=== PATIENT | female | born 1950 | race Caucasian/White ===

== ENCOUNTER → 2022-12-21 18:44 | Outpatient (BNVA) | payer OTHER, SELFPAY | PROVIDERS: Visit Provider Emergency Medicine | DX: R39.9 Unspecified symptoms and signs involving the genitourinary system (principal); N39.0 Urinary tract infection, site not specified | CPT/HCPCS: 81000 ==

== ENCOUNTER → 2023-11-07 09:01 | Outpatient (BNVA) | payer OTHER, SELFPAY | PROVIDERS: Visit Provider Student in an Organized Health Care Education/Training Program | DX: M67.442 Ganglion, left hand | CPT/HCPCS: 73130 ==

== ENCOUNTER 2023-12-20 13:10 | Day surgery (SDC) | payer OTHER, SELFPAY ==
[2023-12-20] VITALS (9 sets, daily range): BP systolic 161–185; BP diastolic 66–81; PULSE 54–65; RESP 14–17; TEMP 36.5; O2SAT 96–100; BMI 31.6
[2023-12-20] MEDS: sodium chloride 0.9% 1,000 ML 30 ML IV (13:57)
--- NOTE | 2023-12-20 13:57 | P.HP_ITS ---
Same Day Surgery H&P Indication for Procedure/HPI DATE OF PROCEDURE: December 20, 2023 CHIEF COMPLAINT/INDICATIONFOR SURGICAL PROCEDURE: Left middle finger mucous cyst PREOP DIAGNOSIS: Left middle finger mucous cyst PLANNED PROCEDURE: Operation Date: 12/20/23 14:50 Proposed Procedures p left middle finger mucous cyst excision(Left) - Bola Suh DO Medications/Allergies* Home Medications Medication Instructions Recorded Confirmed Type atorvastatin 40 mg tablet 40 mg PO DAILY 06/15/20 12/19/23 History metoprolol succinate 50 mg 50 mg PO DAILY 06/15/20 12/19/23 History tablet,extended release 24 hr omeprazole 40 mg capsule,delayed 40 mg PO DAILY 06/15/20 12/19/23 History release loratadine 10 mg tablet (Claritin) 10 mg PO DAILY 11/07/23 12/19/23 History lisinopril 20 1 tab PO DAILY 12/19/23 12/19/23 History mg-hydrochlorothiazide 12.5 mg tablet multivitamin 1 tab PO DAILY 12/19/23 12/19/23 History omega-3 fatty acids 1 cap PO DAILY 12/19/23 12/19/23 History zinc 50 mg tablet 50 mg PO DAILY 12/19/23 12/19/23 History Allergies/Adverse Reactions Allergy/AdvReac Type Severity Reaction Status Date / Time carbamazepine [From Tegretol] Allergy Severe fever Verified 12/19/23 17:02 Pertinent History/Comorbid Conditions* Social History Smoking and tobacco/nicotine status: never used tobacco/nicotine Marital status: Pertinent Exam Findings alert, oriented x 3, operative site marked and procedure specific exam findings Please refer to detailed orthopedic examination on 11/07/2023 detailed below: Examination left hand: Examination left hand demonstrates patient has a soft mobile mucous cyst over the left middle finger DIP joint dorsally. This is tender to palpation was positive Tinel's over the cyst and DIP joint., Fingertip is warm well-perfused brisk cap refill less than 2 seconds she is able to make a full fist and normal- appearing function of the digit with no deformities appreciated. Sensation intact light touch distally. Recommendations Surgery/Procedure today Other Plans: Plan to proceed to the OR today for left middle finger mucous cyst excision. Patient understands in's and outs procedure risk benefits complication alternatives to surgery and through shared decision make elected proceed with surgical invention all questions answered at this time. Patient wished to proceed with local anesthetic. All questions answered. Coding Level of Care Code Acute Code for Chg Fwd
[2023-12-20] MEDS: ketorolac 30 mg/mL INJ IVP (14:04)
[2023-12-20] MEDS: acetaminophen 1,000 MG/100 ML PIGGYBACK 400 MG IV (14:04)
[2023-12-20] MEDS: ceFAZolin 2,000 MG in sodium chloride 0.9% (plus) 50 ML 100 MG IV (14:38)
[2023-12-20] MEDS: ROPivacaine 0.5% SDV 30 mL 150 MG INJECTION (15:02)
[2023-12-20] MEDS: lidocaine 1% 10 ML INJ XX (15:02)
--- NOTE | 2023-12-20 15:23 | P.BOP_ITS ---
Date of Procedure: [12/20/2023] Surgeon: Bola Suh DO [employer] Supervisor(s): None Procedure(s) performed: Left middle finger mucous cyst excision Findings of the procedure(s): Patient was found to have left middle finger mucous cyst underwent excision without issues or complications taken back to preop in stable condition. Will follow-up in 2 weeks. Estimated blood loss: 1 mL Specimen(s) removed: Left middle finger mucous cyst excised and sent for pathology Post-operative diagnosis: Left middle finger mucous cyst
--- NOTE | 2023-12-20 15:25 | P.OP_ITS ---
Operative Report Date of procedure: December 20, 2023 Surgeon: Bola Suh DO Procedure: Preoperative diagnosis: Left middle finger mucous cyst Post-op diagnosis: Same Procedure done: Left middle finger mucous?cyst?excision Surgeon: Bola Suh DO Estimated blood loss: 1 mL Tourniquet time 15 minutes IV fluids: 200 mL Complications: None Findings: See operative report narrative Specimens: Left middle finger mucous cyst sent for pathology Condition: stable Disposition: same day Brief History: Patient presents to the outpatient setting with findings consistent with a Left middle finger mucous?cyst.? She has been worked up in the outpatient setting and is failed conservative treatment approach.? 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 She wishes to proceed with surgical intervention.? We talked about the risk benefits complications and alternatives with surgical nonsurgical treatment options.? Understanding risk of surgery she agrees to proceed with a Left middle finger mucous?cyst?excision.? All questions answered. Patient elects to proceed with local only. Procedure: Patient was seen evaluated in the preoperative holding area.? Consent was reviewed and signed with patient.? Correct extremity was then marked.? Patient elected to proceed with local only no anesthesia provided. patient was then taken back to the operative suite patient was placed in supine position and all bony prominences well-padded the patient was properly secured to the bed.? Armboard was applied to the Left upper extremity. This point time the Left upper extremity was then prepped and draped in standard orthopedic fashion.? A final timeout was performed.? Patient received appropriate preoperative antibiotics. Prior to proceeding with incision sites I then performed digital block of the Left middle finger under sterile aseptic technique Finger turnicot was used over the Left middle finger to exsanguinate the digit. ? Left middle finger was then identified as well as the mucous?cyst?over the DIP joint on the midline aspect of the finger.? I then from the eponychial fold made an incision up to the DIP joint and then made a standard L incision to create a full-thickness skin flap to identify the mucous?cyst.? Sharp scalpel excision and then switching to a [place] blade for meticulous dissection under loupe magnification identified a? mucous?cyst?which was then subsequently excised and sent for pathology. Extensor mechanism was protected throughout the case. Utilized a [place] blade to ellipse out the cyst area and this tracked deep to the DIP joint. There is no significant dorsal osteophytes. I utilized a rongeur to debride off the cyst bed and then utilized bipolar electrocautery to cauterize the entire cyst bed for prevention. The small aspect of the capsule after thoroughly irrigation was then reapproximated with 4-0 Monocryl suture. This completed my mucous cyst excision and then subsequently irrigated the finger turnicot was removed. Hemostasis was maintained with bipolar electrocautery.? Next I closed the incision with interrupted nylon suture.? Incision sites were then dressed with Xeroform 4 x 4's Kerlix Mushtaq wrap and an Jairon wrap.? Patient was then awakened from anesthesia and taken to PACU in stable condition. Disposition: Patient taken to PACU in stable condition recovering well.? Dressing on in place clean dry and intact.? Patient was receive appropriate discharge instruction as well as pain medication postoperatively.? Patient may be allowed weightbearing as tolerated to the Left hand and encourage range of motion once dressing come down after 72 hours.? Patient to follow-up with me in the office in 2 weeks.? Patient understands and agrees with current plan.? All questions answered.
== END 2023-12-20 15:55 | disposition home or self-care (01) ==
PROVIDERS: PCP Internal Medicine Critical Care Medicine; Visit Provider Student in an Organized Health Care Education/Training Program
PROC: (CPT 26160; principal; 2023-12-20 14:40)
DX: M71.342 Other bursal cyst, left hand (principal)
CPT/HCPCS: 26160; 88304; J0131; J0690; J1885; J2704; J2795; J3010; J7030